=== PATIENT | female | born 1985 | race Caucasian/White ===

== ENCOUNTER 2021-12-08 17:04 | Outpatient (CLI) | payer OTHER ==
--- NOTE | 2021-12-09 09:06 | XRAY Report ---
PROCEDURE: Chest 2 View X-Ray INDICATIONS: DYSPNEA TECHNIQUE: 2 views of the chest. COMPARISON: None. FINDINGS: Surgical changes and devices: None. Lungs and pleura: No pleural effusions or pneumothorax. Lungs are clear. Mediastinum: Mediastinal contours are normal. Heart size is normal. Bones and chest wall: No suspicious bony abnormalities. Soft tissues appear unremarkable. IMPRESSION: No acute cardiopulmonary abnormality. Reviewed by: Tayo Scales MD on 12/09/2021 9:05 AM PDT Approved by: Tayo Scales MD on 12/09/2021 9:05 AM PDT Station ID: [id number]
== END 2021-12-08 23:59 | disposition home or self-care (01) ==
LOC: DI.N 17:04
PROVIDERS: ATTEND Family Medicine
DX: R06.00 Dyspnea, unspecified (principal)

== ENCOUNTER 2024-03-20 08:00 | Outpatient (CLI) | payer OTHER | END 2024-03-20 23:59 | disposition home or self-care (01) | LOC: LAB.N 08:00 | PROVIDERS: ATTEND Family Medicine | DX: R30.0 Dysuria (principal) | CPT/HCPCS: 87077; 87086; 87181 ==